=== PATIENT | female | born 1955 | race Caucasian/White ===

== ENCOUNTER 2017-02-24 11:03 | Emergency (ER) | payer MEDICARE ==
--- OUTSIDE RECORDS SUMMARY | 2017-02-24 12:48 | XMS REPORT | Continuity of Care Document ---
:1955 Author Organization [facility] [place] [address] Care Team Providers Name Role Phone Unavailable Primary Care Provider Unavailable Source Comments This disclosure is being made pursuant to the i-Human Patients program and maynot contain all information available regarding this patient.[facility] Active Allergies and Adverse Reactions Not on File Current Medications Be aware that medications may not be up to date as of this document. Alwaysverify current medications with the patient. Not on file Active Problems Not on file Social History Tobacco Use Types Packs/Day Years Used Date Never Assessed Plan of Care Health Maintenance Due Date Last Done Comments Retired-Pertussis Vaccine Adult 1975 Retired-Tetanus Vaccine Adult 1975 Pap Smear 1977 Mammogram 1996 Colonoscopy 2006 Well Adult Visit 2006 Retired-INFLUENZA VACCINE 06/30/2015 Results from Last 3 Months Not on file
[2017-02-24 12:49] LABS: Hematocrit 34.6 % (37.0-47.0); Hemoglobin 11.9 gm/dL (12.5-16.0); Mean Cell Volume 98.9 fl (78-100); Mean Corpuscular Hgb Conc 34.4 g/dl (32-36); Mean Platelet Volume 8.8 fl (6.0-9.5); Platelet Count 620 K/mm3 (150-450); White Blood Count 19.3 K/mm3 (4.0-10.5)
--- OUTSIDE RECORDS SUMMARY | 2017-02-24 12:49 | XMS REPORT | CCD ---
:1955 Author Organization [facility] Care Team Providers Name Role Phone Sebastien Brown Consulting Provider [phone] Self, Referral Referring Provider Unavailable No Family Phy, Physician Primary Care Provider Unavailable Allergies, Adverse Reactions, Alerts Substance Reaction Status penicillins Anaphylactic reaction Active vancomycin Rash Active Flushes Itching Problem List Condition Effective Dates Status Smoker1 Active 1Problem added as a result of a Yes to Cigarrette in the last 365 days Vital Signs Most recent to oldest 1 2 3 [Reference Range]: Respiratory Rate [12-30 16 brpm 16 brpm 16 brpm brpm] (10/08/2013 10:33:00) (10/08/2013 10:23:00) (10/08/2013 10:13:00) Systolic Blood Pressure 114 mm hg 143 mm hg 114 mm hg (10/08/2013 10:33:00) (10/08/2013 10:23:00) (10/08/2013 10:13:00) Diastolic Blood Pressure 89 mm hg 87 mm hg 74 mm hg [61-99 mm hg] (10/08/2013 10:33:00) (10/08/2013 10:23:00) (10/08/2013 10:13: 00) Temperature F [97.7-99.9 97.4 degF 97.2 degF degF] *LOW* *LOW* (10/08/2013 09:53:00) (10/08/2013 07:33:00) Height 162.6 cm (10/08/2013 07:33:00) Weight 56.818 kg (10/08/2013 07:33:00) Results Radiology Reports Exam Date Time Procedure Performing Provider Status 10/08/2013 11:15:00 Spine Thor/LumAP/Lat Felipa Montes; Auth (Verified ) Notes:(Spine Thor/LumAP/Lat) Reason For Exam: Spinal Cord StimulatorREADPatient Name MRN Sex Service [place], Eugenio A [id number] F OPS [address] Account # (AGE) [place] [address] [id number] 1955DWOPCC-DOPR H: 6 (58) Pt. Type CMRN Z [id number] Radiology Report Exam Date/Time: Ordering Doctor: 10/08/2013 10:53 Procedure: Sebastien Brown MD Order id: Spine Thor/LumAP/Lat [id number] Reason: Spinal Cord Stimulator Exam: thoracolumbar spine, 2 views Clinical history: Spinal cord stimulator. Findings: Exam shows spinal stimulator lead entering at the upper L3 level, ascending to terminate at the T9 level. There is diffuse spinal degenerative change. Multilevel disk space narrowing with spurring which is most significant at the upper lumbar levels is noted. There appears to have been prior lumbosacral fusion with lateral bony masses. No fracture is seen. Impression: Documentation of neural stimulator and control unit. Diffuse spinal degenerative and postoperative changes. THIS IS AN ELECTRONICALLY VERIFIED REPORT 10/08/2013 11:44 AM: Jhon Saxena MD Dictated by Jhon Saxena MD 10/08/2013 11:44 AM Dictation Location: [place] [address] 10/08/2013 11:44 AM Transcribed by Camilo REPORT Received by Interface 10/08/13 11:44 am Signed by: Jhon Saxena MD
--- OUTSIDE RECORDS SUMMARY | 2017-02-24 12:49 | XMS REPORT | Continuity of Care Document ---
:1955 Author Organization [facility] ([facility]) Address [address] [place] [address] Phone [phone] Care Team Providers Name Role Phone Leslie Lala Primary Care Provider [phone] Source Comments This disclosure is being made pursuant to the Care Everywhere program, applicable federal and state laws, and may not contain all informaitonavailable regarding this patient.[facility] ([facility]) Active Allergies and Adverse Reactions Allergen Noted Date Severity Reactions Comments Latex, Natural Rubber Blisters,Pruritus,Angioedema Penicillins Respiratory Distress,OTHER felt flushed Current Medications Prescription Sig. Disp. Refills Start Date End Date Status HYDROcodone-acetamino Take 1 Tab by mouth Active phen 5-325 mg per every 4 hours as tablet needed. diphenhydrAMINE Take 25 mg by mouth Active (BENADRYL ALLERGY) 25 at bedtime as mg tablet needed. simvastatin 40 mg Take 40 mg by mouth Active tablet every evening. aspirin 325 mg tablet Take 325 mg by Active mouth daily. multivitamin with Take 1 tablet by Active minerals tablet mouth daily. valACYclovir 500 mg Take 500 mg by Active tablet mouth 2 times daily. HYDROcodone-acetamino Take 1 tablet by 20 tablet 0 12/24/2015 Active phen 5-325 mg per mouth every 4 hours tablet as needed for Pain DO NOT EXCEED 3,000 MG ACETAMINOPHEN PER DAY FROM ALL SOURCES. ibuprofen 800 mg Take 1 tablet (800 20 tablet 0 12/24/2015 Active tablet mg total) by mouth every 6 hours as needed for Pain DO NOT EXCEED 3,200 MG IBUPROFEN PER DAY FROM ALL SOURCES. chlorhexidine 0.12 % Rinse with 10 ML 473 mL 0 12/24/2015 Active oral rinse for 30 seconds twice daily for 10 days. Swish and spit out excess. Nothing by mouth for 30 minutes.. SERTraline 50 mg Take 50 mg by mouth Active tablet daily. traMADol 50 mg tablet Take 50 mg by mouth Active 4 times daily as needed. cyclobenzaprine 10 mg Take 10 mg by mouth Active tablet 3 times daily as needed. 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 CONSULTANT Pulse 93 11/09/2016 11:08 AM SAP ENTERPRISE PORTAL CONSULTANT Temperature 37.3 C (99.1 F) 11/09/2016 11:02 AM SAP ENTERPRISE PORTAL CONSULTANT Respiratory Rate - - Height 1.626 m (5' 4") 11/09/2016 11:02 AM SAP ENTERPRISE PORTAL CONSULTANT Weight 52.2 kg (115 lb 1.3 oz) 11/09/2016 11:02 AM SAP ENTERPRISE PORTAL CONSULTANT Body Mass Index 19.74 11/09/2016 11:02 AM SAP ENTERPRISE PORTAL CONSULTANT Oxygen Saturation - - Plan of Care Date Type Specialty Providers Description 05/03/2017 Appointment Heart and Vascular Feliberto Sutton MD Chief Comp: Patient [address] [facility] [place] [address] Visit [phone] (Fax) 05/03/2017 Appointment Srg Vascular Feliberto Sutton MD [address] [place] [address] [phone] (Fax) Chief Comp: Patient OrellanaLee amaya, WALLACE [address] [place] [address] [phone] (Fax) Reported Reason For Visit Health Maintenance Due Date Last Done Comments HCV Screening 1955 Hepatitis B Vaccine (1 of 3 - Primary Series) 1955 Tdap Vaccine 1967 Lipid Disorder Screening 1974 MMR Vaccine 1974 Td Vaccine 1974 Pneumococcal Vaccine (1 of 1 - PPSV23) 1975 Cervical Cancer Screening 1986 Mammogram 1996 Colonoscopy 2006 Influenza Vaccine: Seasonal (#1) 05/30/2016 Zoster Vaccine 2016 Results from Last 3 Months Not on file
--- NOTE | 2017-02-24 12:52 | ERNOTE ---
Date of Service: 02/24/17 Time Seen by Provider: 02/24/17 12:22 Stated Complaint: COUGHING UP BLOOD Presenting Symptoms:: cough, sore throat, runny nose, fever Source: patient Exam Limitations: no limitations Immunizations: IMMUNIZATION HX Immunizations Up to Date Yes History of Influenza Vaccine Yes Hx Pneumococcal Vaccination Yes Allergies/Adverse Reactions: Allergies adhesive Allergy (Mild, Verified 02/24/17 12:22) RASH, WELTS gabapentin Allergy (Unknown, Verified 02/24/17 12:22) venlafaxine HCl [From Effexor] Adverse Reaction (Intermediate, Verified 12:22) PALPITATION nicotine [From Nicoderm CQ] Adverse Reaction (Mild, Verified 02/24/17 12:22) Headache Penicillins Adverse Reaction (Mild, Verified 02/24/17 12:22) RASH, HOT FLASHES pregabalin [From Lyrica] Adverse Reaction (Mild, Verified 02/24/17 12:22) EXTENSIVE WEIGHT GAIN ciprofloxacin Adverse Reaction (Verified 02/24/17 12:22) Home Medications: HOME MEDICATIONS Simvastatin [Zocor] 40 mg PO HS #60 tablet 08/08/14 [Last Taken 02/22/17 21:00] Aspirin 325 mg PO DAILY 03/25/15 [Last Taken 02/24/17 08:00] Albuterol Sulfate [Proventil Hfa] 6.7 gm IH PRN PRN 04/02/16 [Last Taken 10:45] Sertraline HCl [Zoloft] 50 mg PO HS 04/02/16 [Last Taken 02/23/17 21:00] HYDROcodone/ACETAMINOPHEN [Hydrocodon-Acetaminophen 5-325] 1 each PO TID PRN [Last Taken 02/24/17 08:15] valACYclovir HCL [Valacyclovir HCl] 1 gm MC DAILY 12/21/16 [Last Taken 02/24/17 09:00] Doxycycline Monohydrate 100 mg PO BID #20 tablet 02/24/17 [Last Taken Unknown] predniSONE [Prednisone] 3 tab PO DAILY #9 tab 02/24/17 [Last Taken Unknown] - History of Present Ilness Narrative: Pt. comes in with c/o cough, chest congestion, fever, malaise, increased SOB, sore throat, chills, and rhinorrhea. Pt. denies any CP, NVD, prehospital treatment or aggravating factors. Pt. states that she has increased the amount of albuterol she has been using to help the symptoms. Review of Systems - Review of Systems Constitutional: Present: recent illness, fever, chills, diaphoresis, fatigue, malaise. Absent: weakness, decreased activity level EYE: Present: no symptoms reported ENT: Present: nose congestion, nasal drainage, sore throat. Absent: ear pain Respiratory: Present: shortness of breath, cough, orthopnea, wheezing Cardiology: Present: no symptoms reported. Absent: chest pain, palpitations, edema Gastrointestinal/Abdominal: Present: no symptoms reported. Absent: nausea, vomiting, diarrhea Genitourinary: Present: no symptoms reported Musculoskeletal: Present: no symptoms reported. Absent: back pain, joint pain Skin: Present: no symptoms reported Neurological: Present: no symptoms reported. Absent: headache, dizziness/light- headedness, numbness, tingling All Other Systems: All systems neg except as marked - Patient's Past Medical History Patient History - Medical: Anxiety, Chronic Pain, Depression, Osteoarthritis Patient History - Cardiac/Respiratory: No pertinent hx Patient History - Cancer: No Hx of Cancer Patient History - Surgical Procedures: Back Surgery, Colonoscopy, Hysterectomy, T & A, Other Patient History - Other: None - Family History Mother Family History - Medical: , Alcohol Abuse Father Family History - Medical: , Alcohol Abuse - Social History Living Situations: home Abuse History: No History of abuse Psych History: Hx of Anxiety Does anyone smoke in the home?: Yes Smoking Status: Current every day smoker Alcohol Use: none Drug Use: none - Immunizations Immunizations Up to Date: Yes Hx Pneumococcal Vaccination: Yes History of Influenza Vaccine: Yes Physical Exam - Physical Exam General Appearance: Present: wd/wn, alert, no apparent distress Eye Exam: Normal inspection: bilateral, PERRL: bilateral, EOMI: bilateral Ears, Nose, Throat: Present: nasal congestion, pharyngeal erythema, tonsillar exudate - clear. Absent: abnormal TM (R), abnormal TM (L) Neck: Present: normal inspection, nontender. Absent: lymphadenopathy (R), lymphadenopathy (L) Respiratory: Present: no respiratory distress, no accessory muscle use, chest nontender, decreased breath sounds - LLL Cardiovascular/Chest: Present: no murmur, normal peripheral pulses, tachycardia Gastrointestinal/Abdominal: Present: normal bowel sounds, nontender, nondistended, soft, no organomegaly Back Exam: Present: normal inspection, normal range of motion, no CVA tenderness , no vertebral tenderness Extremity Exam: Present: normal inspection, non-tender, normal range of motion, no edema Neurological Exam: Present: alert, oriented, normal mood/affect, no motor/ sensory deficits Skin Exam: Present: normal color, warm/dry. Absent: pallor, skin rash ED Progress - Date and Time Seen: Date and Time: 02/24/17 14:03 As pt. is not septic or hypoxic feel taht pt. may go home with close follow up with PCP. - Results and Orders Patient's Lab Results:: I have reviewed the patient's lab results. - Vital Signs Patient's Vital Signs:: I have reviewed the patient's vital signs. Vital Signs: Vital Signs 02/24/17 02/24/17 11:19 12:21 Temperature 37.4 C Pulse Rate 101 H 99 Respiratory 16 17 Rate Blood Pressure 135/74 129/73 O2 Sat by Pulse 95 99 Oximetry - X-Ray X-Ray #1 X-Ray: chest Interpretation: Interp. by me X-ray Comments: LLL consolidation - Progress/Reassessment Chief Complaint: Cough Progress:: Unchanged Departure - Departure Clinical Impression: Pneumonia Qualifiers: Pneumonia type: due to unspecified organism Laterality: left Lung location: lower lobe of lung Qualified Code(s): J18.1 - Lobar pneumonia, unspecified organism Disposition: Home self-care Condition: Good Instructions: Community-Acquired Pneumonia, Adult, [id number] Additional Instructions: Please follow up with primary provider in 1-2 days Referrals: Leslie Lala FNP [Primary Care Provider] - Prescriptions: Doxycycline Monohydrate 100 mg PO BID #20 tablet predniSONE [Prednisone] 3 tab PO DAILY #9 tab
[2017-02-24 13:02] LABS: Total Cells Counted 100
[2017-02-24 13:04] LABS: Albumin * 2.5 gm/dl (3.4-5.0); Anion Gap 17.2 mmol/L (6.8-13.8); Bilirubin, Total 0.3 mg/dL (0.0-1.1); Ca. Corrected For Albumin 10.5 mg/dL (8.4-10.2); Calcium * 9.6 mg/dL (7.9-10.9); Carbon Dioxide 24.3 mmol/L (24-32.6); Eosinophil 1 % (0-3); Lymphocyte 14 % (20-51); Monocyte 4 % (0-9); Neutrophil 81 % (42-75); Neutrophil # 15.6 K/mm3 (1.3-6.0); Platelet Estimate Normal (NORMAL); Potassium 3.5 mmol/L (3.4-4.6); RBC Morphology Normal (NORMAL); Total Protein 8.6 gm/dL (6.2-8.2)
[2017-02-24] MEDS: ACETAMINOPHEN 500 MG TABLET PO ONE (13:28)
[2017-02-24 14:33] VITALS: BP 109/78
== END 2017-02-24 14:20 | disposition home or self-care (01) ==
LOC: ER 11:03
DX: J18.1 Lobar pneumonia, unspecified organism (principal); F17.210 Nicotine dependence, cigarettes, uncomplicated

== ENCOUNTER 2017-03-29 09:59 | Emergency (ER) | payer MEDICARE ==
[2017-03-29 10:12] VITALS: BP 88/35
[2017-03-29 10:15] LABS: Hemoglobin 9.1 gm/dL (12.5-16.0); Mean Cell Volume 106.2 fl (78-100); Mean Corpuscular Hemoglobin 33.3 pg (27-31); Mean Corpuscular Hgb Conc 31.4 g/dl (32-36); Mean Platelet Volume 9.4 fl (6.0-9.5); Platelet Count 476 K/mm3 (150-450); Red Blood Count 2.73 M/mm3 (4.2-5.4); Red Cell Distribution Width 13.6 % (11.5-14.0); White Blood Count 24.2 K/mm3 (4.0-10.5)
[2017-03-29 10:18] LABS: Total Cells Counted 100
[2017-03-29 10:24] LABS: Band 1 % (0-2.0); Basophil 1 % (0-1); Hypochromia Trace; Immature Granulocyte 4 (0-1); Lymphocyte 9 % (20-51); Macrocytosis 3+; Monocyte 4 % (0-9); Neutrophil 81 % (42-75); Neutrophil # 19.6 K/mm3 (1.3-6.0); Platelet Estimate Increased (NORMAL)
[2017-03-29 10:27] LABS: Prothrombin Time (Patient) 12.1 Seconds (9.4-11.4)
[2017-03-29 10:28] LABS: INR 1.16 INR (0.90-1.10)
[2017-03-29 10:46] LABS: ALT 121 U/L (19-67); AST 241 U/L (0-48); Albumin * 1.9 gm/dl (3.4-5.0); Alkaline Phosphatase * 114 U/L (50-170); Anion Gap 22.6 mmol/L (6.8-13.8); BUN/Creatinine Ratio 9.1 (9.0-21.6); Bilirubin, Total 0.3 mg/dL (0.0-1.1); Blood Urea Nitrogen 7 mg/dL (3-23); CK Total * 101 U/L (0-259); CKMB 1.4 ng/mL (0.0-9.0); Ca. Corrected For Albumin 10.4 mg/dL (8.4-10.2); Carbon Dioxide 19.1 mmol/L (24-32.6); Chloride 98 mmol/L (97-106); Glucose * 178 mg/dL (70-110); Magnesium 2.3 mg/dL (1.2-2.8); Potassium 3.7 mmol/L (3.4-4.6); Sodium 136 mmol/L (132-142); Total Protein 6.6 gm/dL (6.2-8.2)
--- NOTE | 2017-03-29 11:02 | ERNOTE ---
Cardiopulmonary Resuscitation Date of Service: 03/29/17 - EMS dispatched at 0918 am Presenting Symptoms: collapsed, found unresponsive Time Seen by Provider: 03/29/17 10:52 Source: family Narrative: LINETTE CLEMENS NOTE ARRIVAL TIME 958: TIME OF 1013 Patient presented as code blue found down by , she was unresponsive, fire department 911 called, FD started high quality CPR for victim unresponsive , pulseless, no spont breathing. EMS arrive and intial monitor showed asystole, The patient was intubated with Cj Airway, and IO started Patient pmh not available initially and no mention of code status. Full cpr continued in ED with EValuation for pulse and rhythm check. Asystole on monitor , patient was given amniodarone 100mg IV by EMs and 3 rounds of epinephrine. Patient exam revealed slim female pupils 4 mm dilated non reactive, bilateral breath sounds with BAGGING. 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 Patient had laminectomy January 24 2017 in [place], patient was on pain medications. known copd, prior CVA - Patient's Past Medical History Patient History - Medical: Chronic Pain, Fibromyalgia Patient History - Cardiac/Respiratory: Coronary Heart Disease, COPD, Pneumonia - Family History Family History:: no family history of premature - Social History Living Situations: home Psych History: Hx of Bipolar Disorder Smoking Status: Current every day smoker Physical Exam - Physical Exam Narrative: see linette clemens note: unresponsive, fixed and dilated pupils, cj Airway in place, breath sounds with bagging. abd soft no abnormality noted ext no edema, IO in left ant chou, skin: mottling Rectal Exam: Present: deferred Neurological Exam: Present: other - unresponsive patient found down greater than 30 min so code efforts were discontinued due to and no likelihood of ROSC ED Progress - Results and Orders Patient's Lab Results:: I have reviewed the patient's lab results. Results and Orders: concerns for cardiac arrest - Vital Signs Patient's Vital Signs:: I have reviewed the patient's vital signs. - vitals below noted probably from CPR Vital Signs: Vital Signs 03/29/17 03/29/17 03/29/17 10:01 10:03 10:11 Temperature 35.9 C L Blood Pressure 180/113 88/35 O2 Sat by Pulse 86 L Oximetry - Progress/Reassessment Chief Complaint: Code Blue Progress:: Unchanged - Transfer of Care Additional Notes: body awaiting home Plan - Plan Plan: Code was called at 10:13 am Departure Clinical Impression: Cardiac arrest - Departure Disposition: Condition: - Critical Care Total Time (mins): 30
--- OUTSIDE RECORDS SUMMARY | 2017-03-29 11:41 | XMS REPORT | Continuity of Care Document ---
:1955 Author Organization [facility] ([facility]) Address [address] [place] [address] Phone [phone] Care Team Providers Name Role Phone Leslie Lala Primary Care Provider [phone] Source Comments This disclosure is being made pursuant to the Care Everywhere program, applicable federal and state laws, and may not contain all informaitonavailable regarding this patient.[facility] ([facility]) Active Allergies and Adverse Reactions Allergen Noted [...] Taken Blood Pressure 115/78 11/09/2016 11:08 AM FOREIGN CLERK Pulse 93 11/09/2016 11:08 AM FOREIGN CLERK Temperature 37.3 C (99.1 F) 11/09/2016 11:02 AM FOREIGN CLERK Respiratory Rate - - Height 1.626 m (5' 4") 11/09/2016 11:02 AM FOREIGN CLERK Weight 52.2 kg (115 lb 1.3 oz) 11/09/2016 11:02 AM FOREIGN CLERK Body Mass Index 19.74 11/09/2016 11:02 AM FOREIGN CLERK Oxygen Saturation - - Plan of Care Date Type Specialty Providers Description 05/03/2017 Appointment Heart and Vascular Feliberto Sutton MD Chief Comp: Patient [address] [facility] [place] [address] Visit [phone] (Fax) 05/03/2017 Appointment Srg Vascular Feliberto Sutton MD [address] [place] [address] [phone] (Fax) Chief Comp: Patient OrellanaLee amaya, WALLACE [address] [place] [address] [phone] (Fax) Reported Reason For Visit Health Maintenance [...]
--- OUTSIDE RECORDS SUMMARY | 2017-03-29 11:41 | XMS REPORT | Continuity of Care Document ---
:1955 Author Organization [facility] [place] [address] Care Team Providers Name Role Phone Unavailable Primary Care Provider Unavailable Source Comments This disclosure is being made pursuant to the [employer] program and maynot contain all information available regarding this patient.[facility] Active Allergies and Adverse Reactions Not on [...]
--- OUTSIDE RECORDS SUMMARY | 2017-03-29 11:41 | XMS REPORT | Summary of Care ---
:1955 Author Organization [facility] Address [address] [place] [address]- Care Team Providers Name Role Phone Raj Bonilla Primary Care Physician Encounter Date(s): 12/12/16 - 12/12/16 [facility] [address] [place] [address]- [facility] Discharge Disposition: 01 Discharged to Home or Self Care Vital Signs Most recent to oldest 1 2 3 [Reference Range]: Temperature Temporal Artery 37.0 DegC [36.0-38.0 DegC] (12/12/16 9:11 AM) Heart Rate Monitored [60-100 75 bpm 77 bpm 79 bpm bpm] (12/12/16 12:20 PM) (12/12/16 11:50 AM) (12/12/16 11:05 AM) Respiratory Rate [12-20 18 br/min 20 br/min 20 br/min br/min] (12/12/16 12:20 PM) (12/12/16 11:50 AM) (12/12/16 11:05 AM) SpO2 97 % 99 % 98 % (12/12/16 12:20 PM) (12/12/16 11:05 AM) (12/12/16 9:11 AM) Blood Pressure [90-130/60-90 141/83mmHg 157/89mmHg 119/84mmHg mmHg] *HI* *HI* (12/12/16 11:05 AM) (12/12/16 12:20 PM) (12/12/16 11:50 AM) Problem List Condition Effective Dates Status Health Status Informant Asthma(Confirmed) Active CVA - Cerebrovascular Active accident(Confirmed) Hypercholesterolemia(Confirmed) Active Hypertension(Confirmed) Active Rheumatic fever(Confirmed) Resolved Allergies, Adverse Reactions, Alerts Substance Reaction Severity Status Lyrica Fluid retention Active penicillins hives Active Wellbutrin Shaky Active Medications aspirin 325 mg oral tablet 2 tab(s), Oral, Daily, 0 Refill(s), Start Date: 11/04/15 13:04:00 LOANS OFFICER Start Date: 11/04/15 Status: Orderedcitalopram Oral, Daily, 0 Refill(s), Start Date: 02/12/16 9:38:00 CDT Start Date: 02/12/16 Stop Date: 11/23/16 Status: Completedhydrocodone-acetaminophen 5mg-325mg oral tablet 1 tab(s), Oral, TID, PRN for pain, # 90 tab(s), 0 Refill(s), Start Date: 15:43:00 LOANS OFFICER, Pharmacy: [facility] [id number] Start Date: 11/23/16 Status: OrderedLexapro 20 mg oral tablet 1 tab(s), Oral, Daily, 0 Refill(s), Start Date: 11/04/15 13:04:00 LOANS OFFICER Start Date: 11/04/15 Stop Date: 02/12/16 Status: DiscontinuedMultiple Vitamins oral tablet 1 tab(s), Oral, Daily, 0 Refill(s), Start Date: 11/04/15 13:04:00 LOANS OFFICER Start Date: 11/04/15 Status: Orderedsertraline 50 mg oral tablet 1 tab(s), Oral, Daily, 0 Refill(s), Start Date: 11/23/16 14:46:00 LOANS OFFICER Start Date: 11/23/16 Status: Orderedsimvastatin 40 mg oral tablet 1 tab(s), Oral, HS, 0 Refill(s), Start Date: 11/04/15 13:03:00 LOANS OFFICER Start Date: 11/04/15 Status: OrderedtraMADol 50 mg oral tablet 1 tab(s), Oral, TID, PRN PRN PAIN, # 90 tab(s), 0 Refill(s), Start Date: 10:06:00 CDT, other reason (Rx) Start Date: 02/12/16 Stop Date: 12/12/16 Status: CompletedvalACYclovir 1 g oral tablet 1 tab(s), Oral, Daily, TK 1 T PO D Special Instructions: TK 1 T PO D Start Date: 11/23/16 Status: Ordered Results No data available for this section Immunizations No data available for this section Procedures Procedure Date Related Diagnosis Body Site Repair of left shoulder 02/2015 Hemorrhoid operation 01/11/15 Repair of anal fistula 01/11/15 Transposition of ulnar nerve at elbow 2013 Implantation of neurostimulator in spine 10/08/13 Social History No data available for this section Assessment and Plan No data available for this section
--- OUTSIDE RECORDS SUMMARY | 2017-03-29 11:41 | XMS REPORT | CCD ---
:1955 Author Organization [facility] Care Team Providers Name Role Phone Sebastien Brown Consulting Provider [phone] Self, Referral Referring Provider Unavailable No Family [...] Spinal Cord StimulatorREADPatient Name MRN Sex Service [place], Eugenio A [id number] F OPS [address] Account # (AGE) [place] [address] [id number] 1955DWOPCC-DOPR H: 6 (58) Pt. Type CMRN Z [id number] Radiology Report Exam Date/Time: Ordering Doctor: 10/08/2013 10:53 Procedure: Sebastien Brown MD Order id: Spine Thor/LumAP/Lat [id number] Reason: Spinal Cord Stimulator Exam: thoracolumbar spine, [...] Saxena MD 10/08/2013 11:44 AM Dictation Location: [place] [address] 10/08/2013 11:44 AM Transcribed by Camilo REPORT Received by Interface 10/08/13 11:44 am Signed by: Jhon Saxena MD
--- OUTSIDE RECORDS SUMMARY | 2017-03-29 11:41 | XMS REPORT | Summary of Care ---
:1955 Author Organization [facility] Address [address] [place] [address] Care Team Providers Name Role Phone Raj Bonilla Primary Care Physician Encounter Date(s): 11/23/16 - 11/23/16 [facility] Trinh Humphries, [address] [place], [place] [address] Discharge Diagnosis: Neck pain Discharge Diagnosis: Cervical radiculopathy Discharge Disposition: Discharged to Home or Self Care Attending Physician: Angelo Schumacher MD Referring Physician: Angelo Schumacher MD Vital Signs Most recent to oldest [Reference Range]: 1 Height/Length Measured 162 cm (11/23/16 2:39 PM) Weight Dosing 50.90 kg1 (11/23/16 2:48 PM) Weight Measured 50.9 kg (11/23/16 2:39 PM) BSA Measured 1.53 m2 (11/23/16 2:39 PM) Body Mass Index Measured 19.39 kg/m2 (11/23/16 2:39 PM) 1Result Comment: This result was because the dosing weight was either not entered or it is>30 days old. This result is based off: Weight Measured November 23, 2016 14:39:00 SCHOOL PROGRAM DIRECTOR by Shasha Reyes LPN Problem List Condition Effective Dates Status Health Status Informant Asthma(Confirmed) Active CVA - Cerebrovascular Active accident(Confirmed) Hypercholesterolemia(Confirmed) Active Hypertension(Confirmed) Active Rheumatic fever(Confirmed) Resolved Allergies, Adverse Reactions, Alerts Substance Reaction Severity Status penicillins hives Active Medications aspirin 325 mg oral tablet 2 tab(s), Oral, Daily, 0 Refill(s), Start Date: 11/04/15 13:04:00 SCHOOL PROGRAM DIRECTOR Start Date: 11/04/15 Status: Orderedcitalopram Oral, Daily, 0 Refill(s), Start Date: 02/12/16 9:38:00 CDT Start Date: 02/12/16 Stop Date: 11/23/16 Status: Completedhydrocodone-acetaminophen 5mg-325mg oral tablet 1 tab(s), Oral, TID, PRN for pain, # 90 tab(s), 0 Refill(s), Start Date: 15:43:00 SCHOOL PROGRAM DIRECTOR, Pharmacy: [id number] Start Date: 11/23/16 Status: OrderedLexapro 20 mg oral tablet 1 tab(s), Oral, Daily, 0 Refill(s), Start Date: 11/04/15 13:04:00 SCHOOL PROGRAM DIRECTOR Start Date: 11/04/15 Stop Date: 02/12/16 Status: DiscontinuedMultiple Vitamins oral tablet 1 tab(s), Oral, Daily, 0 Refill(s), Start Date: 11/04/15 13:04:00 SCHOOL PROGRAM DIRECTOR Start Date: 11/04/15 Status: Orderedsertraline 50 mg oral tablet 1 tab(s), Oral, Daily, 0 Refill(s), Start Date: 11/23/16 14:46:00 SCHOOL PROGRAM DIRECTOR Start Date: 11/23/16 Status: Orderedsimvastatin 40 mg oral tablet 1 tab(s), Oral, HS, 0 Refill(s), Start Date: 11/04/15 13:03:00 SCHOOL PROGRAM DIRECTOR Start Date: 11/04/15 Status: OrderedtraMADol 50 mg oral tablet 1 tab(s), Oral, TID, PRN PRN PAIN, # 90 tab(s), 0 Refill(s), Start Date: 10:06:00 CDT, other reason (Rx) Start Date: 02/12/16 Status: OrderedvalACYclovir 1 g oral tablet 1 tab(s), Oral, Daily, TK 1 T PO D Start Date: [...]
--- OUTSIDE RECORDS SUMMARY | 2017-03-29 11:42 | XMS REPORT | Summary of Care ---
:1955 Author Organization [facility] Address [address] [place] [address] Care Team Providers Name Role Phone ChadRaj Tammie Primary Care Physician Encounter Date(s): 12/12/16 - 12/12/16 [facility] Trinh Humphries, [address] [place], [place] [address] Discharge Diagnosis: Cervical spinal stenosis Discharge Disposition: 01 Discharged to Home or Self Care Attending Physician: Angelo Schumacher MD Referring Physician: Unknown Physician Vital Signs Most recent to oldest [Reference Range]: 1 Peripheral Pulse Rate [60-100 bpm] 90 bpm (12/12/16 1:29 PM) Blood Pressure [90-130/60-90 mmHg] 148/90mmHg *HI* (12/12/16 1:29 PM) Mean Arterial Pressure, Cuff 109 mmHg (12/12/16 1:29 PM) Most recent to oldest [Reference Range]: 1 Height/Length Measured 162 cm (12/12/16 1:29 PM) Weight Dosing 50.90 kg1 (12/12/16 1:30 PM) Weight Measured 50.9 kg (12/12/16 1:29 PM) BSA Measured 1.53 m2 (12/12/16 1:29 PM) Body Mass Index Measured 19.39 kg/m2 (12/12/16 1:29 PM) 1Result Comment: This result was because the dosing weight was either not entered or it is>30 days old. This result is based off: Weight Measured December 12, 2016 13:29:00 CLINIC CLERK by Lela Reed CMA Problem List Condition Effective Dates Status Health Status Informant Asthma(Confirmed) Active CVA - Cerebrovascular Active accident(Confirmed) Hypercholesterolemia(Confirmed) Active Hypertension(Confirmed) Active Rheumatic fever(Confirmed) Resolved Allergies, Adverse Reactions, Alerts Substance Reaction Severity Status Lyrica Fluid retention Active penicillins hives Active Wellbutrin Shaky Active Medications aspirin 325 mg oral tablet 2 tab(s), Oral, Daily, 0 Refill(s), Start Date: 11/04/15 13:04:00 CLINIC CLERK Start Date: 11/04/15 Status: Orderedcitalopram Oral, Daily, 0 Refill(s), Start Date: 02/12/16 9:38:00 CDT Start Date: 02/12/16 Stop Date: 11/23/16 Status: Completedhydrocodone-acetaminophen 5mg-325mg oral tablet 1 tab(s), Oral, TID, PRN for pain, # 90 tab(s), 0 Refill(s), Start Date: 15:43:00 CLINIC CLERK, Pharmacy: [id number] Start Date: 11/23/16 Status: OrderedLexapro 20 mg oral tablet 1 tab(s), Oral, Daily, 0 Refill(s), Start Date: 11/04/15 13:04:00 CLINIC CLERK Start Date: 11/04/15 Stop Date: 02/12/16 Status: DiscontinuedMultiple Vitamins oral tablet 1 tab(s), Oral, Daily, 0 Refill(s), Start Date: 11/04/15 13:04:00 CLINIC CLERK Start Date: 11/04/15 Status: Orderedsertraline 50 mg oral tablet 1 tab(s), Oral, Daily, 0 Refill(s), Start Date: 11/23/16 14:46:00 CLINIC CLERK Start Date: 11/23/16 Status: Orderedsimvastatin 40 mg oral tablet 1 tab(s), Oral, HS, 0 Refill(s), Start Date: 11/04/15 13:03:00 CLINIC CLERK Start Date: 11/04/15 Status: OrderedtraMADol 50 mg [...]
[2017-03-29 11:58] LABS: Troponin I 0.133 ng/ml (0.00-0.10)
== END 2017-03-29 19:07 | disposition expired ==
LOC: EDBD → MERGE 09:59 → ER 09:59
PROC: 5A12012 Performance of Cardiac Output, Single, Manual (ICD-10-PCS; principal; 2017-03-29)
DX: I46.9 Cardiac arrest, cause unspecified (principal); Z72.0 Tobacco use
CPT/HCPCS: 80053; 82550; 82553; 83735; 84484; 85007; 85025; 85610; 92950; 99291; G0481